=== PATIENT | male | born 1950 | race Caucasian/White ===

== ENCOUNTER 2021-08-05 04:48 | Emergency (ER) | payer OTHER ==
[2021-08-05] MEDS ORDERED: ALBUTEROL 2.5 MG/3 ML NEB SOL ONE (06:04)
[2021-08-05] MEDS ORDERED: IPRATROPIUM BROM 0.5MG/2.5ML ONE (06:05)
[2021-08-05 06:14] LABS: Absolute Lymphocytes (CBC) 1.6 K/uL (0.7-4.9); Hematocrit 45.8 % (39.6-49.0); Lymphocytes % 29.2 % (15.3-44.8); RBC Red Blood Cell Count 4.77 M/uL (4.33-5.43)
[2021-08-05 06:18] LABS: Protime INR 1.1
[2021-08-05 06:34] LABS: ALT/SGPT 48 U/L (12-78); AST/SGOT 24 U/L (15-37); Albumin 3.7 g/dL (3.4-5.0); Alkaline Phosphatase 76 U/L (45-117); BUN Blood Urea Nitrogen 9 mg/dL (7-18); Bicarbonate 24 mmol/L (21-32); Bilirubin Direct 0.2 mg/dL (0-0.2); Bilirubin Total 0.8 mg/dL (0.2-1.0); Glucose Level 285 mg/dL (74-106); Magnesium 1.7 mg/dL (1.8-2.4); NT PRO-BNP 24 pg/mL (<125); Potassium 4.1 mmol/L (3.5-5.1); Protein, Total 7.2 g/dL (6.4-8.2); Sodium Level 134 mmol/L (136-145); Troponin High Sensitivity 7.6 pg/mL (<58.9)
[2021-08-05] MEDS ORDERED: METHYLPREDNISOLONE 125 MG INJ ONE (07:26)
--- NOTE | 2021-08-05 07:54 | RAD REPORT ---
EXAM DESCRIPTION: CT - Chest For Pe Angio - 08/05/2021 7:40 am CLINICAL HISTORY: dyspnea COMPARISON: Abdomen Pelvis W Contrast dated 11/20/2020 FINDINGS: Chest Wall: No suspicious thyroid nodules or pathologic lymphadenopathy. Lungs: No acute abnormality. New 9 mm right lower lobe pulmonary nodule on image 150, series 602. Pleura: No significant effusions or pneumothorax. Mediastinum/alana: No pathologic lymphadenopathy. Pulmonary arteries/Aorta: No filling defect identified. Ectasia of the ascending thoracic aorta. Heart: No significant pericardial effusion. Normal heart size. Multi-vessel coronary artery disease. Upper abdomen: Cholelithiasis. Bones: No acute abnormality.Multilevel degenerative changes are present in the spine. All CT scans are performed using dose optimization technique as appropriate and may include automated exposure control or mA/KV adjustment according to patient size. IMPRESSION: Negative for pulmonary embolism. No acute findings in the chest. New 9 mm right lower lobe pulmonary nodule. Based on the location and no reported history of malignan cy, a benign process is suspected. Nevertheless, a nodule of this size should have 3 month follow-up chest CT to ensure stability and/or resolution.
--- NOTE | 2021-08-05 08:07 | EKG ---
Test Date: 2021-08-05 Test Time: 05:06:12 Agricultural And Forestry Supervisor: MARIIA MEASUREMENT RESULTS: Intervals: Rate: 63 DE: 164 QRSD: 84 QT: 404 QTc: 413 [place]: P: 20 DE: 164 QRS: 23 T: 57 INTERPRETIVE STATEMENTS: Sinus rhythm with premature atrial complexes with aberrant conduction Otherwise normal ECG Compared to ECG 02/07/2007 15:30:25 Atrial premature complex(es) now present Aberrant conduction of supraventricular beat(s) now present Sinus bradycardia no longer present Electronically Signed On 08-05-21 08:06:47 CDT by Des Scott
--- NOTE | 2021-08-05 08:38 | ER ---
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 Dooley for ongoing cough x3-4 months, no relief with Prednisone and inhaler at home. Coronavirus screen: At this time, the client does not indicate any symptoms associated with coronavirus-19. Ebola Screen: No symptoms or risks identified at this time. Initial Sepsis Screen: Does the patient meet any 2 criteria? No. Patient's initial sepsis screen is negative. Does the patient have a suspected source of infection? No. Patient's initial sepsis screen is negative. Risk Assessment: Do you want to hurt yourself or someone else? Patient reports no desire to harm self or others. Onset of symptoms was August 05, 2021. 05:07 Method Of Arrival: Ambulatory lp1 05:07 Acuity: YASMIN 3 lp1 Historical: - Allergies: 05:08 No Known Allergies; lp1 - Home Meds: 05:08 amlodipine 10 mg tab 1 tab once daily [Active]; bisoprolol fumarate 5 mg oral tab 1 tab lp1 once daily [Active]; lisinopril 40 mg Oral tab 1 tab once daily [Active]; metformin 1,000 mg Oral tr24 1 tab once daily [Active]; gemfibrozil 600 mg Oral tab [Active]; allopurinol 300 mg Oral tab [Active]; venlafaxine 75 mg oral cp24 1 cap once daily [Active]; pravastatin 20 mg oral tab 1 tab once daily [Active]; - PMHx: 05:08 Hypertensive disorder; Gout; Diabetes mellitus; Hypercholesterolemia; lp1 - PSHx: 05:08 Hernia Repair; Knee repair; lp1 - Immunization history:: Adult Immunizations up to date. - Social history:: Smoking status: Patient denies any tobacco usage or history of. Screenin:55 Abuse screen: Denies threats or abuse. Denies injuries from another. Nutritional lg3 screening: No deficits noted. Tuberculosis screening: No symptoms or risk factors identified. Fall Risk None identified. Assessment: 05:55 General: Appears in no apparent distress. comfortable, Behavior is calm, cooperative. lg3 Pain: Denies pain. Neuro: No deficits noted. Level of Consciousness is awake, alert, obeys commands, Oriented to person, place, time, situation. Cardiovascular: No deficits noted. Reports fatigue, shortness of breath, Rhythm is sinus rhythm. Respiratory: Reports shortness of breath cough that is Airway is patent Trachea midline Respiratory effort is even, unlabored, Respiratory pattern is regular, symmetrical. GI: No deficits noted. No signs and/or symptoms were reported involving the gastrointestinal system. : No deficits noted. No signs and/or symptoms were reported regarding the genitourinary system. EENT: No deficits noted. No signs and/or symptoms were reported regarding the EENT system. Derm: No deficits noted. No signs and/or symptoms reported regarding the dermatologic system. Skin is intact, is healthy with good turgor, Skin is dry, Skin is pink, warm \T\ dry. Musculoskeletal: No deficits noted. No signs and/or symptoms reported regarding the musculoskeletal system. Circulation, motion, and sensation intact. Capillary refill < 3 seconds, Range of motion: intact in all extremities. 06:32 Reassessment: Patient appears in no apparent distress at this time. No changes from lg3 previously documented assessment. Patient and/or family updated on plan of care and expected duration. Pain level reassessed. Patient is alert, oriented x 3, equal unlabored respirations, skin warm/dry/pink. 07:00 Reassessment: RECD REPORT FROM HAYDE BHATT. 71YO WM P/W SOB. CT PE PENDING. bp 09:00 Reassessment: D/C ON HOLD FOR FINAL MEDICATIONS. bp 09:32 Reassessment: PT D/C HOME AMBULATORY WITH FAMILY, DX WITH COPD EXACERBATION. bp Respiratory: Breath sounds are clear bilaterally. Vital Signs: 05:07 BP 158 / 72; Pulse 70; Resp 20; Temp 98.7(O); Pulse Ox 95% on R/A; Weight 99.79 kg (R); lp1 Height 5 ft. 9 in. (175.26 cm); Pain 0/10; 05:54 BP 154 / 70; Pulse 62; Resp 19 S; Pulse Ox 93% on R/A; lg3 07:00 BP 138 / 58; Pulse 66; Resp 13; Pulse Ox 97% ; bp 09:04 BP 150 / 75; Pulse 63; Resp 10; Temp 98.5; Pulse Ox 98% ; bp 09:32 BP 145 / 67; Pulse 66; Resp 11; Pulse Ox 97% ; bp 05:07 Body Mass Index 32.49 (99.79 kg, 175.26 cm) lp1 ED Course: 04:50 Patient arrived in ED. bp1 04:56 Janell Chappell, RN is Primary Nurse. lg3 05:06 Uzair Briseno MD is Attending Physician. 7 05:08 Triage completed. lp1 05:08 Arm band placed on. lp1 05:55 Patient has correct armband on for positive identification. Placed in gown. Bed in low lg3 position. Call light in reach. Side rails up X 1. electronic device monitor on. Pulse ox on. NIBP on. Door closed. Noise minimized. Warm blanket given. 05:57 XRAY Chest (1 view) In Process Unspecified. EDMS 06:04 Inserted saline lock: 20 gauge in right forearm, using aseptic technique. Blood lg3 collected. 06:04 Basic Metabolic Panel Sent. lg3 06:04 CBC with Diff Sent. lg3 06:04 LFT's Sent. lg3 06:04 Magnesium Sent. lg3 06:04 NT PRO-BNP Sent. lg3 06:04 PT-INR Sent. lg3 06:04 Troponin HS Sent. lg3 06:37 Oxygen administration via nasal cannula \T\ 2L/min. lg3 07:30 Primary Nurse role handed off by Janell Chappell, NOVA bp 07:30 Kp Brito, NOVA is Primary Nurse. bp 07:32 Attending Physician role handed off by Uzair Briseno MD yaritza 07:32 Manan Galloway MD is Attending Physician. yaritza 07:42 CT Chest For PE Angio In Process Unspecified. EDMS 08:39 Jose Dooley MD is Referral Physician. yaritza 09:33 No provider procedures requiring assistance completed. IV discontinued, intact, bp bleeding controlled, No redness/swelling at site. Pressure dressing applied. Administered Medications: 06:05 Drug: Albuterol 2.5 mg Route: Inhalation; lg3 06:05 Follow up: Response: No adverse reaction lg3 06:05 Drug: AtroVENT (ipratropium) Aerosol 0.5 mg Route: Inhalation; lg3 06:05 Follow up: Response: No adverse reaction lg3 07:15 Drug: SOLU-Medrol (methylPrednisoLONE) 125 mg Route: IVP; Site: right forearm; sm5 08:44 Follow up: Response: No adverse reaction bp 08:42 CANCELLED (Duplicate Order): Magnesium 400 mg PO once yaritza 08:45 Drug: Xopenex (levalbuterol) 2.5 mg Route: Inhalation; bp 08:45 Drug: predniSONE 40 mg Route: PO; bp 09:03 Follow up: Response: No adverse reaction bp 08:45 Drug: Magnesium Sulfate 2 grams Route: IVPB; Infused Over: 0.5 hrs; Site: right forearm;bp 09:34 Follow up: IV Status: Completed infusion bp Outcome: 08:37 Discharge ordered by . yaritza 09:33 Discharged to home ambulatory, with family. bp 09:33 Condition: stable 09:33 Discharge instructions given to patient, family, Instructed on discharge instructions, follow up and referral plans. medication usage, Demonstrated understanding of instructions, follow-up care, medications, Prescriptions given X 4. 09:34 Patient left the ED. bp Signatures: Dispatcher [employer] EDMS Manan Galloway MD MD cha Pena, Laura RN RN lp1 Kp Brito RN RN Janell Barry RN RN lg3 Minal Anthony [facility] Uzair Briseno MD MD 7 Rita Figueroa RN RN sm5 Corrections: (The following items were deleted from the chart) 06:36 05:54 BP 154 / 70; Pulse 62bpm; Resp 19bpm; Spontaneous; Pulse Ox 94% RA; lg3 lg3
--- NOTE | 2021-08-05 08:38 | EDPHYS ---
Physician Documentation [facility] Name: Ricki Loco Age: 71 yrs Sex: Male : 1950 Arrival Date: 08/05/2021 Time: 04:50 Bed 7 Private MD: ED Physician Manan Galloway HPI: 08/05 05:50 This 71 yrs old Male presents to ER via Ambulatory with complaints of Breathing mh7 Difficulty. 05:50 The patient has shortness of breath at rest. Onset: The symptoms/episode began/occurred mh7 last night. Duration: The symptoms are intermittent, with no pattern. The patient's shortness of breath is aggravated by coughing, is alleviated by nothing. Associated signs and symptoms: Pertinent positives: productive cough, Pertinent negatives: chest pain, non-productive cough, diaphoresis, dizziness, fever, hemoptysis, loss of consciousness, nausea, numbness in extremities, visual changes, vomiting. Severity of symptoms: At their worst the symptoms were moderate last night, in the emergency department the symptoms are unchanged. Historical: - Allergies: 05:08 No Known Allergies; lp1 - Home Meds: 05:08 amlodipine 10 mg tab 1 tab once daily [Active]; bisoprolol fumarate 5 mg oral tab 1 tab lp1 once daily [Active]; lisinopril 40 mg Oral tab 1 tab once daily [Active]; metformin 1,000 mg Oral tr24 1 tab once daily [Active]; gemfibrozil 600 mg Oral tab [Active]; allopurinol 300 mg Oral tab [Active]; venlafaxine 75 mg oral cp24 1 cap once daily [Active]; pravastatin 20 mg oral tab 1 tab once daily [Active]; - PMHx: 05:08 Hypertensive disorder; Gout; Diabetes mellitus; Hypercholesterolemia; lp1 - PSHx: 05:08 Hernia Repair; Knee repair; lp1 - Immunization history:: Adult Immunizations up to date. - Social history:: Smoking status: Patient denies any tobacco usage or history of. ROS: 05:50 Constitutional: Negative for fever, chills, and weight loss, Eyes: Negative for injury, mh7 pain, redness, and discharge, ENT: Negative for injury, pain, and discharge, Neck: Negative for injury, pain, and swelling, Cardiovascular: Negative for chest pain, palpitations, and edema, Abdomen/GI: Negative for abdominal pain, nausea, vomiting, diarrhea, and constipation, Back: Negative for injury and pain, : Negative for injury, bleeding, discharge, and swelling, MS/Extremity: Negative for injury and deformity, Skin: Negative for injury, rash, and discoloration, Neuro: Negative for headache, weakness, numbness, tingling, and seizure, Psych: Negative for depression, anxiety, suicide ideation, homicidal ideation, and hallucinations, Allergy/Immunology: Negative for hives, rash, and allergies, Endocrine: Negative for neck swelling, polydipsia, polyuria, polyphagia, and marked weight changes, Hematologic/Lymphatic: Negative for swollen nodes, abnormal bleeding, and unusual bruising. Exam: 05:50 Head/Face: Normocephalic, atraumatic. Eyes: Pupils equal round and reactive to light, mh7 extra-ocular motions intact. Lids and lashes normal. Conjunctiva and sclera are non-icteric and not injected. Cornea within normal limits. Periorbital areas with no swelling, redness, or edema. Neck: Trachea midline, no thyromegaly or masses palpated, and no cervical lymphadenopathy. Supple, full range of motion without nuchal rigidity, or vertebral point tenderness. No Meningismus. Chest/axilla: Normal chest wall appearance and motion. Nontender with no deformity. No lesions are appreciated. Cardiovascular: Regular rate and rhythm with a normal S1 and S2. No gallops, murmurs, or rubs. Normal PMI, no JVD. No pulse deficits. 05:50 Abdomen/GI: Soft, non-tender, with normal bowel sounds. No distension or tympany. No guarding or rebound. No evidence of tenderness throughout. Back: No spinal tenderness. No costovertebral tenderness. Full range of motion. Skin: Warm, dry with normal turgor. Normal color with no rashes, no lesions, and no evidence of cellulitis. MS/ Extremity: Pulses equal, no cyanosis. Neurovascular intact. Full, normal range of motion. Neuro: Awake and alert, GCS 15, oriented to person, place, time, and situation. Cranial nerves II-XII grossly intact. Motor strength 5/5 in all extremities. Sensory grossly intact. Cerebellar exam normal. Normal gait. Psych: Awake, alert, with orientation to person, place and time. Behavior, mood, and affect are within normal limits. 05:50 Constitutional: The patient appears in no acute distress, alert, awake, uncomfortable. 05:50 Respiratory: the patient does not display signs of respiratory distress, Respirations: prolonged exhalation, that is moderate, Breath sounds: rhonchi, that are mild, are scattered, Respiratory rate: 18 Vital Signs: 05:07 BP 158 / 72; Pulse 70; Resp 20; Temp 98.7(O); Pulse Ox 95% on R/A; Weight 99.79 kg (R); lp1 Height 5 ft. 9 in. (175.26 cm); Pain 0/10; 05:54 BP 154 / 70; Pulse 62; Resp 19 S; Pulse Ox 93% on R/A; lg3 07:00 BP 138 / 58; Pulse 66; Resp 13; Pulse Ox 97% ; bp 09:04 BP 150 / 75; Pulse 63; Resp 10; Temp 98.5; Pulse Ox 98% ; bp 09:32 BP 145 / 67; Pulse 66; Resp 11; Pulse Ox 97% ; bp 05:07 Body Mass Index 32.49 (99.79 kg, 175.26 cm) lp1 MDM: 07:32 Patient medically screened. yaritza 08:37 Differential diagnosis: Bronchitis CHF exacerbation, Chronic Obstructive Pulmonary yaritza Disease reactive airway disease. Antibiotic administration: The patient is discharged and will get outpatient antibiotics, Zithromax. The patient's Wells Deep Vein Thrombosis Score was calculated as follows: Total Score: 0-2 Pts- Low Risk. The patient's pulmonary embolism risk score was calculated as follows: Total Score: 0-2 points. This patient was found to be at low risk for a pulmonary embolism by using the Well's assessment criteria. Immunization status: Pneumococcal vaccine: Influenza vaccine: Data reviewed: vital signs, nurses notes, lab test result(s), EKG, radiologic studies, CT scan, plain films. Data interpreted: cardiology physician assistant: rate is 66 beats/min, rhythm is atrial fibrillation, Pulse oximetry: on room air is 97 %. Test interpretation: by ED physician or midlevel provider: ECG, plain radiologic studies. 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 08/05 05:32 Order name: Basic Metabolic Panel; Complete Time: 06:54 7 08/05 05:32 Order name: CBC with Diff; Complete Time: 06:54 7 08/05 05:32 Order name: LFT's; Complete Time: 06:54 7 08/05 05:32 Order name: Magnesium; Complete Time: 06:54 7 08/05 05:32 Order name: NT PRO-BNP; Complete Time: 06:54 7 08/05 05:32 Order name: PT-INR; Complete Time: 06:54 7 08/05 05:32 Order name: Troponin HS; Complete Time: 06:54 7 08/05 05:32 Order name: XRAY Chest (1 view) [facility] 08/05 07:13 Order name: CT Chest For PE Angio; Complete Time: 08:32 7 08/05 09:05 Order name: Urine Dipstick-Ancillary EDMS 08/05 05:32 Order name: EKG; Complete Time: 05:33 7 08/05 05:32 Order name: Cardiac monitoring; Complete Time: 06:04 7 08/05 05:32 Order name: EKG - Nurse/Tech; Complete Time: 05:54 7 08/05 05:32 Order name: IV Saline Lock; Complete Time: 06:04 7 08/05 05:32 Order name: Labs collected and sent; Complete Time: 06:04 7 08/05 05:32 Order name: O2 Per Protocol; Complete Time: 06:04 7 08/05 05:32 Order name: O2 Sat Monitoring; Complete Time: 06:04 mh7 Administered Medications: 06:05 Drug: Albuterol 2.5 mg Route: Inhalation; lg3 06:05 Follow up: Response: No adverse reaction lg3 06:05 Drug: AtroVENT (ipratropium) Aerosol 0.5 mg Route: Inhalation; lg3 06:05 Follow up: Response: No adverse reaction lg3 07:15 Drug: SOLU-Medrol (methylPrednisoLONE) 125 mg Route: IVP; Site: right forearm; sm5 08:44 Follow up: Response: No adverse reaction bp 08:42 CANCELLED (Duplicate Order): Magnesium 400 mg PO once yaritza 08:45 Drug: Xopenex (levalbuterol) 2.5 mg Route: Inhalation; bp 08:45 Drug: predniSONE 40 mg Route: PO; bp 09:03 Follow up: Response: No adverse reaction bp 08:45 Drug: Magnesium Sulfate 2 grams Route: IVPB; Infused Over: 0.5 hrs; Site: right forearm;bp 09:34 Follow up: IV Status: Completed infusion bp Disposition Summary: 08/05/21 08:37 Discharge Ordered Location: Home yaritza Problem: new yaritza Symptoms: have improved yaritza Condition: Stable yaritza Diagnosis - COPD/ Chronic obstructive pulmonary disease with (acute) exacerbation yaritza - Dyspnea yaritza - Hypomagnesemia yaritza - Solitary pulmonary nodule yaritza - Type 2 diabetes mellitus with hyperglycemia yaritza Followup: yaritza - With: Private Physician - When: 2 - 3 days - Reason: Recheck today's complaints, Continuance of care, Re-evaluation by your physician Followup: yaritza - With: Jose Dooley MD - When: 2 - 3 days - Reason: Recheck today's complaints, Continuance of care, Re-evaluation by your physician Discharge Instructions: - Discharge Summary Sheet yaritza - Chronic Obstructive Pulmonary Disease yaritza - Chronic Obstructive Pulmonary Disease Exacerbation yaritza - Chronic Obstructive Pulmonary Disease, [id number] yaritza - Cough, Adult, [id number] yaritza - Type 2 Diabetes Mellitus, Diagnosis, Adult yaritza - Cough, Adult yaritza - Pulmonary Nodule, [id number] yaritza Forms: - Medication Reconciliation Form yaritza - Thank You Letter yaritza - Antibiotic Education yaritza - Prescription Opioid Use yaritza Prescriptions: - Albuterol Sulfate 2.5 mg /3 mL (0.083 %) Inhalation Solution for Nebulization - inhale 1 unit by NEBULIZATION route every 8 hours As needed; 1 box; Refills: 0, yaritza Product Selection Permitted - Zithromax Z-Douglas 250 mg Oral Tablet - take 1 tablet by ORAL route as directed for 5 days Day 1 - take two (2) tablets yaritza one time. Day 2, 3, 4 , 5 take one (1) tablet once daily.; 6 tablet; Refills: 0, Product Selection Permitted - Prednisone 20 mg Oral Tablet - take 2 tablets by ORAL route once daily for 5 days; 10 tablet; Refills: 0, yaritza Product Selection Permitted - albuterol sulfate 90 mcg/actuation Inhalation HFA aerosol inhaler - inhale 2 puff by INHALATION route every 6 hours; 1 Pump; Refills: 0, Product yaritza Selection Permitted - Guaifenesin AC 10-100 mg/5 mL Oral Liquid - take 10 milliliters by ORAL route every 6 hours As needed; 180 milliliter; yaritza Refills: 0, Product Selection Permitted Signatures: Dispatcher [employer] Manan Reece MD MD cha Pena, Laura RN RN lp1 Kp Brito RN RN bp Janell Chappell RN RN lg3 Uzair Briseno MD MD mh7 Rita Figueroa RN RN sm5 Corrections: (The following items were deleted from the chart) 08:42 08:42 Magnesium 400 mg PO once ordered. yaritza viigl
[2021-08-05] MEDS ORDERED: Magnesium Sulfate 2gm IVPB 2 G/50 ML BAG IV ONE (08:53)
[2021-08-05] MEDS ORDERED: LEVALBUTEROL 1.25 MG/3 ML NEB ONE (08:53)
[2021-08-05] MEDS ORDERED: predniSONE 20 MG TAB ONE (08:53)
[2021-08-05 09:05] LABS: Urine Blood Negative (Negative); Urine Glucose 2+ (Negative); Urine Protein Negative (Negative); Urine Specific Gravity 1.015 (1.005-1.030)
--- NOTE | 2021-08-05 10:04 | RAD REPORT ---
EXAM DESCRIPTION: RAD - Chest Single View - 08/05/2021 5:55 am CLINICAL HISTORY: The patient is 71 years old and is Male; Cough TECHNIQUE: Frontal view of the chest. COMPARISON: No relevant prior studies available. FINDINGS: LUNGS: Unremarkable. No consolidation. PLEURAL SPACE: Unremarkable. No pneumothorax. HEART: Unremarkable. No cardiomegaly. MEDIASTINUM: Unremarkable. BONES/JOINTS: Unremarkable. UPPER ABDOMEN: Unremarkable as visualized. IMPRESSION: No acute cardiopulmonary process. Electronically signed by: Luz Elena Engel MD 08/05/2021 6:18 AM CDT Due to temporary technical issues with the PACS/Fluency reporting system, reports are being signed by the in house radiologist without review as a courtesy to ensure prompt reporting. The interpreting r adiologist is fully responsible for the content of the report.
[2021-08-05 14:48] VITALS: TEMP 98.5
[2021-08-05 14:50] VITALS: BP 145/67; O2SAT 97
== END 2021-08-05 09:34 | disposition home or self-care (01) ==
LOC: ER 04:48
DX: J44.1 Chronic obstructive pulmonary disease with (acute) exacerbation (principal); R91.1 Solitary pulmonary nodule; E11.65 Type 2 diabetes mellitus with hyperglycemia; E83.42 Hypomagnesemia; R06.00 Dyspnea, unspecified; I10 Essential (primary) hypertension; E78.00 Pure hypercholesterolemia, unspecified; M10.9 Gout, unspecified
CPT/HCPCS: 96365; 93005; 85025; 80048; 36415; 83735; 85610; 80076; 81003; 84484; 83880; 71275; 71045; 96375; 99285; Q9967; J7512; J3475; J2930

== ENCOUNTER 2023-01-03 14:17 | Observation (INO) | payer OTHER ==
[2023-01-03] MEDS ORDERED: D10W 250 ML BAG IV PRN (15:37)
[2023-01-03] MEDS ORDERED: GLUCAGON 1 MG/VIAL IM PRN (15:37)
[2023-01-03] MEDS ORDERED: ALBUTEROL 2.5 MG/3 ML NEB SOL IH PRN (15:47)
[2023-01-03] MEDS ORDERED: DIPHENHYDRAMINE 25 MG TAB/CAP PO PRN (16:00)
[2023-01-03] MEDS ORDERED: NACHLORIDE 0.45% 1,000 ML IV SCH (16:00)
[2023-01-03] MEDS ORDERED: ONDANSETRON 4 MG (ODT) TAB PO PRN (16:00)
[2023-01-03] MEDS ORDERED: PNEUMOCOCCAL VACCINE 0.5 ML IMVAC ONE (16:00)
[2023-01-03] MEDS ORDERED: ACETAMINOPHEN 325 MG TABLET PO PRN (16:00)
[2023-01-03] MEDS ORDERED: LOPERAMIDE HCL 2 MG CAPSULE PO PRN (16:00)
[2023-01-03] MEDS ORDERED: ONDANSETRON 4 MG/2 ML VIAL IV PRN (16:00)
[2023-01-03] MEDS ORDERED: POLYETHYL GLY 3350 17 GM/DOSE PO PRN (16:00)
[2023-01-03 16:05] VITALS: BMI 32.6
[2023-01-03] MEDS: INSULIN -REGULAR HUMAN 50 UNIT/0.5 ML ML SQ SCH ×2 (16:30→21:39)
[2023-01-03 17:45] LABS: Absolute Lymphocytes (CBC) 1.5 K/uL (0.7-4.9); Hematocrit 40.9 % (39.6-49.0); Lymphocytes % 20.2 % (15.3-44.8); MCV 91.6 fL (80-100); MPV 9.2 fL (7.6-11.3); Platelets 135 thou/uL (152-406); RBC Red Blood Cell Count 4.47 M/uL (4.33-5.43)
[2023-01-03 17:54] LABS: Protime INR 1.05
[2023-01-03] MEDS: FUROSEMIDE 20 MG/ 2ML VIAL IV SCH (18:03)
[2023-01-03] MEDS: ENOXAPARIN 40 MG/0.4 ML SQ SCH (18:03)
--- NOTE | 2023-01-03 18:25 | RAD REPORT ---
EXAM DESCRIPTION: CT - Angio Aorta For Dissection - 01/03/2023 5:37 pm CLINICAL HISTORY: Chest pain/Dyspnea COMPARISON: No comparisons TECHNIQUE: Dynamically enhanced 3 mm thick images of the chest, abdomen, and pelvis were obtained du ring administration of approximately 150mL Isovue 370 IV contrast. Sagittal and coronal reconstructio ns as well as maximal intensity projection reconstruction were generated and reviewed per an aortic a ngiography protocol. All CT scans are performed using dose optimization technique as appropriate and may include automated exposure control or mA/KV adjustment according to patient size. FINDINGS: Aorta is normal in diameter with no dissection or other acute aortic findings. Reconstruct ion images show no significant findings. Pulmonary arteries are normal as well. No mass or infiltrate in the lung parenchyma. No pleural thickening, pleural effusion or pneumothorax . No abnormal mediastinal or hilar mass or lymphadenopathy seen. No chest wall mass or abnormal axillar y lymphadenopathy. Celiac, SMA and renal arteries show no suspicious findings. Cholelithiasis. Left inguinal hernia, wit h PE left anterior urinary bladder diverticulum extending into the hernia sac. Solid abdominal viscer a and bowel show no other significant findings. No mass or abnormal lymphadenopathy. IMPRESSION: No acute abnormalities on CT angiogram of the aorta. No other acute findings on chest, abdomen and pelvis examination. Incidental findings including cholelithiasis, in the urinary bladder diverticulum extending into the left inguinal hernia.
[2023-01-03 18:27] LABS: Albumin 3.7 g/dL (3.4-5.0); Bilirubin Direct 0.3 mg/dL (0-0.2); Bilirubin Indirect, Calculated 0.6 mg/dL (0.2-0.8); Bilirubin Total 0.9 mg/dL (0.2-1.0); Phosphorus 3.2 mg/dL (2.5-4.9); Potassium 3.9 mEq/L (3.5-5.1); Protein, Total 7.1 g/dL (6.4-8.2); Thyroid Stimulating Hormone 2.64 uIU/mL (0.358-3.740)
[2023-01-03] MEDS: IPRATROPIUM BROM 0.5MG/2.5ML IH SCH (20:05)
[2023-01-03] MEDS: ALBUTEROL 2.5 MG/3 ML NEB SOL IH SCH (20:05)
[2023-01-03] MEDS: VALACYCLOVIR 500 MG TAB PO SCH (21:40)
[2023-01-03 21:53] LABS: SARS-CoV-2 Antigen Rapid Res Negative (Negative)
[2023-01-03 22:51] LABS: Urine Bacteria None Seen /HPF (<20); Urine Bilirubin NEGATIVE (Negative); Urine Blood Trace (Negative); Urine Clarity Clear (Clear); Urine Color Light-Yellow (Yellow); Urine Glucose NEGATIVE (Negative); Urine Protein NEGATIVE (Negative); Urine Urobilinogen Normal (Normal)
[2023-01-03] MEDS: OSELTAMIVIR 75 MG CAP PO SCH (22:51)
[2023-01-03 22:53] LABS: Specific Gravity > 1.030 (1.005-1.030)
[2023-01-04] MEDS: ALBUTEROL 2.5 MG/3 ML NEB SOL IH SCH ×3 (01:30→12:50)
[2023-01-04] MEDS: IPRATROPIUM BROM 0.5MG/2.5ML IH SCH ×3 (01:30→12:50)
[2023-01-04 01:36] VITALS: O2SAT 94
[2023-01-04 02:25] LABS: Absolute Lymphocytes (CBC) 2.7 K/uL (0.7-4.9); Hematocrit 41.9 % (39.6-49.0); Lymphocytes % 34.2 % (15.3-44.8); MCV 91.7 fL (80-100); MPV 8.8 fL (7.6-11.3); Platelets 114 thou/uL (152-406); RBC Red Blood Cell Count 4.57 M/uL (4.33-5.43)
[2023-01-04 02:53] LABS: Magnesium 1.9 mg/dL (1.6-2.4); Potassium 2.9 mEq/L (3.5-5.1)
[2023-01-04 03:14] LABS: Blood Morphology Comment NOT SEEN (NOT SEEN); Platelet Estimate ADEQ
[2023-01-04] MEDS: KCL 20 MEQ/100 mL IVPB 20 MEQ/100 ML BAG IV SCH ×3 (06:04→11:08)
[2023-01-04 08:39] VITALS: BP 131/63; TEMP 98.4
[2023-01-04] MEDS: VALACYCLOVIR 500 MG TAB PO SCH ×2 (08:53→14:08)
[2023-01-04] MEDS: OSELTAMIVIR 75 MG CAP PO SCH (08:53)
[2023-01-04] MEDS: PIOGLITAZONE 15 MG TAB PO SCH ×2 (08:54→10:24)
[2023-01-04] MEDS: INSULIN -REGULAR HUMAN 50 UNIT/0.5 ML ML SQ SCH ×2 (08:58→11:30)
[2023-01-04] MEDS: FUROSEMIDE 20 MG/ 2ML VIAL IV SCH (08:59)
[2023-01-04] MEDS ORDERED: HOME MED 1 EA UNK (Losartan Potassium [Cozaar] 100 MG Tablet) PO SCH (09:00)
[2023-01-04] MEDS ORDERED: BISOPROLOL 5 MG TABLET PO SCH (09:00)
[2023-01-04] MEDS: ENOXAPARIN 40 MG/0.4 ML SQ SCH (09:00)
[2023-01-04] MEDS ORDERED: HOME MED 1 EA UNK (Fenofibrate,Micronized [Fenofibrate] 67 MG Capsule) PO SCH (09:00)
[2023-01-04] MEDS ORDERED: HOME MED 1 EA UNK (Pravastatin Sodium [Pravastatin Sodium] 20 MG Tablet) PO SCH (09:00)
[2023-01-04] MEDS ORDERED: VENLAFAXINE HCL XR 75 MG CAP PO SCH (09:00)
[2023-01-04] MEDS ORDERED: allopurinoL 300 MG TAB PO SCH (09:00)
[2023-01-04] MEDS ORDERED: LOSARTAN POTASSIUM 50 MG TABLET PO SCH (09:00)
[2023-01-04] MEDS ORDERED: AMLODIPINE 10 MG TAB PO SCH (09:00)
[2023-01-04] MEDS ORDERED: ATORVASTATIN 10 MG TAB PO SCH (09:00)
--- NOTE | 2023-01-04 09:07 | RAD REPORT ---
EXAM DESCRIPTION: US - Abdomen Exam Complete - 01/04/2023 1:53 am CLINICAL HISTORY: Weight gain COMPARISON: Abdomen Pelvis W Contrast dated 11/20/2020 TECHNIQUE: Sonographic grayscale and color flow images of the abdomen were obtained. FINDINGS: Evaluation of the midline structures reveals normal appearance of the visualized aspects o f the pancreatic head. The visualized aspects of the aorta are of normal caliber. The liver is normal in size with smooth contour. Diffusely increased echogenicity with normal echotex ture. No focal lesions. No intrahepatic biliary ductal dilation. Spleen is normal in size and shows no focal suspicious findings. Gallbladder size is normal. Numerous sizable shadowing gallstones. No wall thickening, or pericholecy stic fluid. Common bile duct measures 6 millimeter, within normal, with no common duct stone identifi ed. No hydronephrosis or suspicious mass in either kidney. Normal-sized kidneys. Tiny bilateral interpola r calculi, approximately 2 millimeter. No ascites or bulky lymphadenopathy. IMPRESSION: Cholelithiasis. Small bilateral interpolar renal calculi, approximately 2 millimeter in size. Hepatic steatosis.
--- NOTE | 2023-01-04 21:15 | P.DS ---
Admission Date: 01/03/23 Discharge Date: 01/04/23 Disposition: ROUTINE DISCHARGE Discharge Condition: GOOD Hospital Course: MARIANA IS LOT BETTER. HE HAS SOME PAIN AND TAMIFLU HELPED. HIS K HAS BEEN REPLACED. HE CAME WITH FEVER, CHEST PAIN AND R SIDE FOREHAD RASH. CT DISSECTION PROTOCOL IS GOOD. HE HAS FLU POS BUT NEG FOR COVID. HE IS STABLE TO GO HOME. I CALLED IN TAMIFLU, VALTREX AND KCL FROM OFFICE. Vital Signs/Physical Exam: Temp Pulse Resp BP Pulse Ox 98.4 F 72 18 131/63 96 01/04/23 08:00 01/04/23 08:00 01/04/23 08:00 01/04/23 08:00 01/04/23 08:00 Laboratory Data at Discharge: WBC 7.90 thou/uL (4.3-10.9) 01/04/23 02:01 Hgb 14.3 g/dL (13.6-17.9) 01/04/23 02:01 Hct 41.9 % (39.6-49.0) 01/04/23 02:01 Plt Count 114 thou/uL (152-406) L 01/04/23 02:01 PT 11.5 SECONDS (9.5-12.5) 01/03/23 16:58 INR 1.05 01/03/23 16:58 APTT 28.6 SECONDS (24.3-36.9) 01/03/23 16:58 Sodium 133 mEq/L (136-145) L 01/04/23 02:01 Potassium 2.9 mEq/L (3.5-5.1) L D 01/04/23 02:01 BUN 10 mg/dL (7-18) 01/04/23 02:01 Creatinine 0.90 mg/dL (0.70-1.30) 01/04/23 02:01 Glucose 109 mg/dL (74-106) H 01/04/23 02:01 Phosphorus 3.2 mg/dL (2.5-4.9) 01/03/23 16:58 Magnesium 1.9 mg/dL (1.6-2.4) 01/04/23 02:01 Total Bilirubin 0.9 mg/dL (0.2-1.0) 01/03/23 16:58 AST 19 U/L (15-37) 01/03/23 16:58 ALT 22 U/L (16-61) 01/03/23 16:58 Alkaline Phosphatase 52 U/L (45-117) 01/03/23 16:58 Home Medications: Allopurinol 1 tab PO DAILY 01/03/23 Amlodipine Besylate 1 tab PO DAILY 01/03/23 Fenofibrate,Micronized [Fenofibrate] 1 cap PO DAILY 01/03/23 Losartan Potassium [Cozaar] 1 tab PO DAILY 01/03/23 Metformin HCl [Glucophage*] 1,000 mg PO BID 01/03/23 Pioglitazone [Actos*] 1 tab PO DAILY 01/03/23 Pravastatin Sodium 1 tab PO DAILY 01/03/23 Venlafaxine HCl [Venlafaxine HCl ER] 1 tab PO DAILY 01/03/23 bisoproloL fumarate [Zebeta*] 1 tab PO DAILY 01/03/23 Physician Discharge Instructions: PROBLEM: Chest pain, Shingles GOAL: Clear understanding of disease process INSTRUCTIONS: Ok to discharge home Follow up with Dr. Hayes in 1-2 weeks Take new medications as prescribed. Prescriptions sent by Dr. Hayes's office Contact physician or return to ER for any complications or concerns Call [phone] for any questions regarding hospital stay Diet: Regular Activity: As tolerated IMMUNIZATION Influenza Vaccine Indicated: Influenza Vaccine Given: Date Given: Pneumonia Vaccine Indicated: Yes Pneumonia Vaccine Given: Yes Date Given: Followup: Jose Hayes MD [Primary Care Provider] -
--- NOTE | 2023-01-05 06:48 | ECHO ---
HEIGHT: 5 ft 9 in WEIGHT: 219 lb 4.8 oz DATE OF STUDY: 01/04/[address]: Jose Hayes MD 2-DIMENSIONAL: YES M.MODE: YES DOPPLER: YES COLOR FLOW: YES TDS: PORTABLE: YES DEFINITY: BUBBLE STUDY: DIAGNOSIS: CHEST PAIN CARDIAC HISTORY: CATHERIZATION: SURGERY: PROSTHETIC VALVE: PACEMAKER: MEASUREMENTS (cm) DIASTOLIC (NORMALS) SYSTOLIC (NORMALS) IVSd 1.0 (0.6-1.2) LA Diam 3.5 (1.9-4.0) LVEF 57% LVIDd 4.8 (3.5-5.7) LVIDs 3.3 (2.0-3.5) %FS 30% LVPWd 1.0 (0.6-1.2) Ao Diam 3.1 (2.0-3.7) 2 DIMENSIONAL ASSESSMENT: RIGHT ATRIUM: NORMAL LEFT ATRIUM: NORMAL RIGHT VENTRICLE: NORMAL LEFT VENTRICLE: NORMAL TRICUSPID VALVE: NORMAL MITRAL VALVE: MILD MITRAL REGURGITATION PULMONIC VALVE: NORMAL AORTIC VALVE: MILD AORTIC INSUFFICIENCY PERICARDIAL EFFUSION: NONE AORTIC ROOT: NORMAL LEFT VENTRICULAR WALL MOTION: NORMAL DOPPLER/COLOR FLOW: SEE BELOW COMMENTS: 1. NORMAL LEFT VENTRICULAR EJECTION FRACTION 55-60% WITH NORMAL WALL MOTION 2. GRADE I DIASTOLIC DYSFUNCTION 3. MILD MITRAL REGURGITATION 4. MILD AORTIC INSUFFICIENCY TECHNOLOGIST: MIKEY KEY
== END 2023-01-04 16:30 | disposition home or self-care (01) ==
LOC: 2ND 14:42
PROVIDERS: ADMIT Internal Medicine; ATTEND Internal Medicine
DX: J10.1 Influenza due to other identified influenza virus with other respiratory manifestations (principal); R07.9 Chest pain, unspecified; R50.9 Fever, unspecified; I10 Essential (primary) hypertension; E78.5 Hyperlipidemia, unspecified; I71.40 Abdominal aortic aneurysm, without rupture, unspecified; N40.0 Benign prostatic hyperplasia without lower urinary tract symptoms; R06.00 Dyspnea, unspecified; R21 Rash and other nonspecific skin eruption; Z20.822 Contact with and (suspected) exposure to COVID-19
CPT/HCPCS: 93306; 87040 ×2; 85025 ×2; 81001; 80048 ×2; 36415 ×2; 83735 ×2; 84100; 85610; 82565; 82947 ×2; 85379; 80076; 85730; 84443; 83036; 82607; 82306; 83880; 87807; 87804 ×2; 71275; 74175; 90471; 90732; 76700; 94640; 87811; Q9967; J1815 ×2; J3480 ×2; J1940 ×2; J7613 ×4; J7644 ×4; J1650; G0378; G0379

== ENCOUNTER 2024-07-24 05:54 | Day surgery (SDC) | payer OTHER ==
[2024-07-19 12:11] LABS: Absolute Basophils 0.1 K/uL (0-0.5); Absolute Eosinophils 0.4 K/uL (0-0.5); Absolute Lymphocytes (CBC) 2.2 K/uL (0.7-4.9); Absolute Monocytes 0.7 K/uL (0.1-1.3); Absolute Neutrophil 3.9 K/uL (1.8-8.0); Basophils % 1.3 % (0-1.3); Eosinophils % 5.7 % (0-4.4); Hematocrit 40.9 % (39.6-49.0); Hemoglobin 14.3 g/dL (13.6-17.9); Lymphocytes % 30.4 % (15.3-44.8); MCH 31.4 pg (27.0-35.0); MCHC 34.9 g/dL (32.0-36.0); MPV 9.3 fL (7.6-11.3); Monocytes % 9.7 % (3.3-12.3); Neutrophils % 52.9 % (41.7-73.7); Nucleated Red Blood Cells % 0.1 % (0-0); Platelets 232 thou/uL (152-406); RBC Red Blood Cell Count 4.55 M/uL (4.33-5.43); Red Cell Distribution Width 13.8 % (12.1-15.2)
[2024-07-19 12:13] LABS: Specific Gravity 1.013 (1.005-1.030); Sqamous Epithelial None Seen /HPF (None Seen); Urine Bacteria None Seen /HPF (<20); Urine Bilirubin NEGATIVE (Negative); Urine Blood Negative (Negative); Urine Clarity Turbid (Clear); Urine Color Light-Yellow (Yellow); Urine Culture Reflex Order NOT NEEDED; Urine Glucose NEGATIVE (Negative); Urine Ketones NEGATIVE (Negative); Urine Microscopic Reflex YN ORDER UMIC; Urine Nitrite NEGATIVE (Negative); Urine Protein NEGATIVE (Negative); Urine RBC <5 /HPF (None Seen); Urine Urobilinogen Normal (Normal); Urine WBC <5 /HPF (<5); Urine pH 7.5 (5.0-7.0)
[2024-07-19 12:23] LABS: Albumin 3.9 g/dL (3.4-5.0); Albumin/Globulin Ratio 1.2 (1.1-1.8); Anion Gap 6.7 mEq/L (5.0-15.0); Bilirubin Total 0.8 mg/dL (0.2-1.0); Globulin 3.3 g/dL (2.3-3.5); Potassium 3.7 mEq/L (3.5-5.1); Protein, Total 7.2 g/dL (6.4-8.2)
[2024-07-19 12:35] LABS: PT Prothrombin Time 11.1 SECONDS (10-13.0); PTT, Activated Partial Thromb 32.4 SECONDS (27.2-37.4); Protime INR 0.97
[2024-07-24] MEDS: CELECOXIB 100 MG CAPSULE ONE (06:25)
[2024-07-24] MEDS: Oxycodone HCl/Acetaminophen 5/325 MG TAB ONE (06:25)
[2024-07-24] MEDS: ACETAMINOPHEN 500 MG TAB ONE (06:25)
[2024-07-24] MEDS: GABAPENTIN 100 MG CAP ONE (06:25)
[2024-07-24] MEDS: MORPHINE SULFATE/PF 1 MG/ML (10 ML AMP) ONE (06:27)
[2024-07-24] MEDS: NA CHLORIDE 0.9% 1,000 ML ONE ×2 (06:30→08:15)
[2024-07-24] MEDS ORDERED: propofoL 200 MG/20 ML VIAL IV ONE (06:33)
[2024-07-24] MEDS ORDERED: LIDOCAINE 1% MPF 5 ML VIAL ONE (06:33)
[2024-07-24] MEDS ORDERED: FENTANYL CITR 100 MCG/2 ML ONE (06:33)
[2024-07-24] MEDS ORDERED: EPINEPHRINE 1 MG/ML VIAL ONE (06:33)
[2024-07-24] MEDS ORDERED: MIDAZOLAM HCL 2 MG/2 ML INJ ONE (06:33)
[2024-07-24] MEDS: TRANEXAMIC ACID 1,000 MG/10 ML VIAL IV ONE (06:46)
[2024-07-24] MEDS ORDERED: EPHEDRINE SULF 50 MG/ML VIAL ONE (07:25)
[2024-07-24] MEDS ORDERED: GLYCOPYRROLATE 0.2 MG/ML SYR ONE (07:37)
[2024-07-24] MEDS ORDERED: ONDANSETRON 4 MG/2 ML VIAL ONE (07:37)
[2024-07-24] MEDS ORDERED: Phenylephrine HCl 10 MG/ML 1 ML VIAL ONE (07:40)
[2024-07-24] MEDS: CEFAZOLIN SODIUM 2 GM/VIAL ONE (07:45)
[2024-07-24] MEDS: ALBUMIN HUM 5% 250 ML IV ONE (08:21)
--- NOTE | 2024-07-24 09:09 | P.BOP ---
Preoperative diagnosis: left hip arthritis Postoperative diagnosis: same Primary procedure: left SANDOR Estimated blood loss: 150 Anesthesia: General Transferred to: Recovery Room Condition: Good
[2024-07-24] MEDS ORDERED: ONDANSETRON 4 MG/2 ML VIAL IV PRN (09:20)
[2024-07-24] MEDS ORDERED: HYDROCODONE/APAP 5/325 MG TAB PO PRN (09:21)
--- NOTE | 2024-07-24 09:25 | RAD REPORT ---
EXAMINATION: Hip Left 1 View CLINICAL INDICATION: Male, 74 years old. [facility] MAIN TOTAL HIP REPLACEMENT TECHNIQUE: 1 view radiograph of the left hip were obtained. COMPARISON: No prior exam. FINDINGS: No evidence of fracture or dislocation. Components of left hip arthroplasty in satisfactory alignment, missing the femoral head component. Surgical defect along the left upper thigh.. IMPRESSION: Sequelae of intraoperative hip arthroplasty as above.
[2024-07-24 09:39] LABS: Hematocrit 35.9 % (39.6-49.0); Hemoglobin 12.4 g/dL (13.6-17.9)
--- NOTE | 2024-07-24 10:12 | OP ---
Date of Procedure: 07/24/2024 Surgeon: Justino Peters MD Preoperative Diagnosis: Severe left hip arthritis. Postoperative Diagnosis: Severe left hip arthritis. Procedure: Left total hip arthroplasty using the [place] system. Estimated Blood Loss: 150 cc. Complications: There were no complications. Indications For Operation: Mr. Loco is a 74-year-old gentleman who unfortunately has debilitatin g hip pain with decreased range of motion and limitations of ADLs. He failed conservative management for this and x-rays demonstrated near destruction of the left hip. Risks, benefits, and alternative s to this procedure had been discussed with both he and his family. They stated they understand thin gs as presented and wishes to proceed. Description Of Procedure: Patient was taken to the operating room. He had spinal anesthesia obtaine d by Anesthesia staff. Following this, a Callaway was placed and he was rolled right side down. He was properly positioned using the hip positioners for left total hip arthroplasty. Left lower extremity was then prepped and draped in the usual sterile fashion for the procedure. It should be noted that all his bony prominences were checked. Also, he has an axillary roll. After prepping and draping, a standard posterior lateral incision was taken down carefully through skin and soft tissues. Meticu lous hemostasis being maintained using Bovie electrocautery. This leads down to the fascia. A small stab wound was made in the fascia and gluteal tendon was palpated to ensure it was in correct positi on. Then the fascial incision was taken up to near the tip of the greater trochanter where the glute us devin muscles were encountered. They were then spread using finger pressure. The sciatic nerve was palpated for further protection and the Charnley was placed. After this, the external rotators and capsule were then removed carefully and tagged for later repair. The hip was then dislocated. I t was found to be very malformed and slightly shorter than standard neck cut was then performed. The head was then removed and sized using ring gauges. The acetabulum was inspected. It was somewhat d ished out anteriorly and there was a small central osteophyte. The soft tissues were removed as well as the labrum and sequentially reamed up to a size 55, which appeared to have good bleeding bone thr oughout. It appeared to be appropriately sized. After this, size 56 cup was then placed and felt to be solid with finger pressure as well as general appearance and appeared to be properly positioned. Attention was then turned to the femur. bill cutter was used to establish lateral starting portal. This was followed by placement of canal-finding reamer. It was then sequentially broached up to a si ze 5. Size 5 felt like it was ideal. There was possibility that we could get a size 6. However, an x-ray was taken to demonstrate position of the cup as well as the size of the stem. At this point, I think if we tried to force a 6 down, it could be possible. However, there is risk of femur fractur e and the 5 appears to be fitting well and good feel. After this, the liner was placed followed by a size 5 standard offset stem and it was then trialed with a -2 and relocates and is stable to flexion to 90 degrees, internal rotation to at least 30 degrees. Decision was made to trial with a standard . The standard was then trialed and it was found to be stable to flexion and internal rotation to ap proximately 45 degrees. At this point, judgment was used and I felt that slightly longer and more st able would be better than perhaps slightly short with risk of instability and therefore the standard ball was chosen. The wound was copiously irrigated and the final ball had been placed. It was then relocated. It was found to be stable in the above areas. The wound was again irrigated and the exte rnal rotators and capsule were then repaired back to the greater trochanter via bone tunnels. It was again irrigated and the fascia was closed in a watertight fashion using Vicryl sutures. It was agai n irrigated. Skin was closed using 2-0 Vicryl followed by ned. The patient was then placed in A quacel dressing, awakened, and taken to recovery room in good condition. No complications. SE/MODL Voice ID: [id number] Report ID: [id number]
[2024-07-24 10:48] VITALS: BMI 29.9
[2024-07-24] MEDS ORDERED: ENOXAPARIN 40 MG/0.4 ML SQ SCH (17:00)
[2024-07-24] MEDS ORDERED: CEFAZOLIN 1 GM in NA CHLORIDE 0.9% 50 ML IVPB SCH (17:00)
[2024-07-24] MEDS: CEFAZOLIN 1 GM in NA CHLORIDE 0.9% 50 ML IVPB SCH (17:12)
[2024-07-24 17:41] LABS: Hematocrit 34.3 % (39.6-49.0); Hemoglobin 11.9 g/dL (13.6-17.9)
[2024-07-25 05:03] LABS: Hematocrit 35.2 % (39.6-49.0); Hemoglobin 12.4 g/dL (13.6-17.9)
[2024-07-25 08:30] VITALS: BP 172/76; TEMP 98.2
[2024-07-25] MEDS ORDERED: HOME MED 1 EA UNK (Pravastatin Sodium [Pravastatin Sodium] 20 MG Tablet) PO SCH (09:00)
[2024-07-25] MEDS: HOME MED 1 EA UNK (Fenofibrate,Micronized [Fenofibrate] 67 MG Capsule) PO SCH (09:00)
[2024-07-25] MEDS: ENOXAPARIN 40 MG/0.4 ML SQ SCH (09:28)
[2024-07-25] MEDS: VENLAFAXINE HCL XR 75 MG CAP PO SCH (09:29)
[2024-07-25] MEDS: allopurinoL 300 MG TAB PO SCH (09:29)
[2024-07-25] MEDS: LOSARTAN POTASSIUM 50 MG TABLET PO SCH (09:32)
[2024-07-25] MEDS: BISOPROLOL 5 MG TABLET PO SCH (09:33)
[2024-07-25 10:14] VITALS: O2SAT 96
--- NOTE | 2024-07-25 16:08 | P.SSS ---
Patient History Date of Service: 07/25/24 Reason for admission: HIP REPLACED L SIDE. History of Present Illness: MARIANA IS PATIENT WITH DM,TREMORS, HISTORY OF HEAVY ETOH,MEMORY LOSS AND DEPRESSION. HE HAD L HIP REPLACED, HE IS STABLE. HE IS STILL DEPRESSED MAINLY FORM MEDICAL ISSUES. I WILL WORK ON THIS LATER. HE IS STABLE TO GO HOME. Allergies adhesive tape Allergy (Verified 07/19/24 10:12) Skin Tears Home Medications: Allopurinol 1 tab PO DAILY 01/03/23 Fenofibrate,Micronized [Fenofibrate] 1 cap PO DAILY 01/03/23 Pravastatin Sodium 1 tab PO DAILY 01/03/23 bisoproloL fumarate [Zebeta*] 1 tab PO DAILY 01/03/23 Metformin HCl 1,000 mg PO DAILY WITH BREAKFAST 07/19/24 Venlafaxine HCl [Venlafaxine HCl ER] 75 mg PO DAILY 07/19/24 Amlodipine [Norvasc*] 1 tab PO DAILY 07/24/24 Losartan Potassium 1 tab PO DAILY 07/24/24 - Past Medical/Surgical History Has patient received pneumonia vaccine in the past: Yes Diabetic: Yes -: hypertension -: diabetes -: arthritis -: right hip arthroplasty -: dental work - Family History Mother -: Heart disease, Hypertension Father -: Kidney disease, Other (see notes) Notes: autoimmune disease, polyarthritis (kidney problems) - Social History Smoking Status: Former smoker Alcohol use: No CD- Drugs: No Caffeine use: Yes Place of Residence: Home Review of Systems 10-point ROS is otherwise unremarkable General: Weakness Physical Examination - Vital Signs Temperature: 98.2 F Blood Pressure: 172/76 Pulse: 80 Respirations: 16 Pulse Ox (%): 99 - Physical Exam General: Acute distress, Mild distress, Obese HEENT: Atraumatic, PERRLA, Mucous membr. moist/pink, EOMI, Sclerae nonicteric Neck: Supple, 2+ carotid pulse no bruit, No LAD, Without JVD or thyroid abnormality Respiratory: Clear to auscultation bilaterally, Normal air movement Cardiovascular: Regular rate/rhythm, Normal S1 S2 Gastrointestinal: Normal bowel sounds, No tenderness Musculoskeletal: No tenderness Integumentary: No rashes Neurological: Normal gait, Normal speech, Normal strength at 5/5 x4 extr, Normal tone, Normal affect Lymphatics: No axilla or inguinal lymphadenopathy - Studies Laboratory Data (last 24 hrs) 07/25/24 07/24/24 04:52 17:29 Hgb 12.4 L 11.9 L Hct 35.2 L 34.3 L - Diagnosis (Problem(s)) (1) Status post left hip replacement Status: Acute Plan: DR. SANTANA DCED HIM. MEDS BY HIM. (2) Diabetes Status: Chronic Qualifiers: Diabetes mellitus type: type 2 (3) Alcoholic dementia Status: Chronic Qualifiers: Dementia severity: moderate (4) Essential tremor Status: Acute - Disposition Disposition: DC HOME/HOME HEALTH CARE
[2024-07-25] MEDS ORDERED: ATORVASTATIN 10 MG TAB PO SCH (21:00)
[2024-07-26] MEDS ORDERED: METFORMIN HCL 500 MG TAB PO SCH (08:00)
== END 2024-07-25 10:41 | disposition home health service (06) ==
LOC: PRE 05:54 → 2ND 09:09 → OR 07-25 10:41
PROVIDERS: ATTEND Orthopaedic Surgery
PROC: 0SRB0JA Replacement of Left Hip Joint with Synthetic Substitute, Uncemented, Open Approach (ICD-10-PCS; principal; 2024-07-24 07:00)
DX: M16.12 Unilateral primary osteoarthritis, left hip (principal)
CPT/HCPCS: 85025; 81001; 36415 ×2; 85610; 82947 ×4; 88305; 88311; 85730; 85018 ×2; 85014 ×2; 80053; 73501; 97110; 97116 ×2; 97161; 97530; 94760 ×2; 27130; C1776 ×2; P9045; J2704; J2003; J2371; J2250; J3010; J0171; J2405; J7030 ×2; J0690; 88304